=== PATIENT | male | born 1940 | race Caucasian/White ===

== ENCOUNTER 2017-10-09 13:52 | Inpatient (IN) | payer MEDICARE, MEDICAID ==
[~2017-10-09] VITALS: Ht 157.4 cm; Wt 72.8 kg
--- NOTE | ~2017-10-09 | PR ---
[place], [place] PROGRESS NOTE [id number] UNIT #: [id number] ROOM: 311 DOCTOR: JERONIMO OROZCO MD BIRTHDATE: [birth year] DOS: 10/15/2017 CHIEF COMPLAINT: "Look over there, go get me that, I have not had anything to eat." SUMMARY OF THE VISIT: The patient was interviewed as he was sitting in the dining area. He conversed readily, at times not making any sense at all. He reports that he did not have breakfast yet. Staff reports he ate a good breakfast. He continues to be labile. Staff reports that he episodically spits out his medication. He has taken enough of the Risperdal orally, though to be able to ascertain that he is tolerating it well. MENTAL STATUS: He is alert and oriented to self only. He remains grossly confused and disoriented. Mood remains labile. Affect at times is inappropriate. There is no kiya or hypomania. There are no auditory or visual hallucinations. He does process slowly and exhibits extremely poor short term memory. PLAN: I will renew his Ativan p.r.n. in case he requires intervention. I will start him on Risperdal Consta 12.5 mg IM every 14 days. If he tolerates this well, I will discontinue the oral eventually and leave him just on the Consta. This will at least then negate his spitting out of his medications. Engage in individual and zepeda milieu activity, returning then to the least restrictive environment when stable. JERONIMO OROZCO MD CM:PNTRANS [id number] JERONIMO OROZCO MD 10/15/17 1142 interface
--- NOTE | ~2017-10-09 | WRIGHTHP ---
[place], [place] PATIENT HISTORY AND PHYSICAL EXAM NAME: SHANDA CHEW UNIT #: [id number] ROOM: 311 DOCTOR: JERONIMO OROZCO MD BIRTHDATE: [birth year] DOS: 10/10/2017 CHIEF COMPLAINT: The patient was nonverbal. HISTORY OF PRESENT ILLNESS: This is a 77-year-old white male who is a resident of [facility]. He is admitted now to the [facility] due to an increase in agitation and aggression. The patient has been physically and verbally aggressive toward staff and other residents. He has been hitting, kicking, spitting and biting. He has also been biting himself. He has been undressing himself in front of other patients. He has been very inappropriate and attempts to redirect him have only led to him escalating further to the point where he is putting both himself and others at significant risk of harm. He is admitted now to rule out any organic factors to attempt to stabilize on medication, returning to the least restrictive environment when psychiatrically stable. PAST MEDICAL HISTORY: Remarkable for atrial fibrillation, gout, hyperlipidemia, hypertension, orthostatic hypotension and Alzheimer dementia. MENTAL STATUS: Upon admission, the patient was alert and oriented to self. As I called his name, he opened his eyes briefly, then closed them and then would not converse with me anymore. This seemed to be volitional on his part and he seemed to be deliberately ignoring me. I could not get any further information out of him whatsoever. DIAGNOSIS: Brief psychotic disorder, rule out major depression, recurrent, with psychotic features. PLAN: I have already started him on Depakote, which he has been episodically noncompliant with. I will go ahead and order Risperdal M-Tab because I do believe we can get this in him to be more compliant and if needed, I can utilize Risperdal Consta. I will support and monitor, engage in individual and zepeda milieu therapy, returning to the least restrictive environment when psychiatrically stable. [place], [place] PATIENT HISTORY AND PHYSICAL EXAM NAME: SHANDA CHEW UNIT #: [id number] ROOM: 311 DOCTOR: JERONIMO OROZCO MD BIRTHDATE: [birth year] JERONIMO OROZCO MD CM:TODDS:PATIENT HISTORY AND PHYSICAL EXAMINATION 8 07 JERONIMO OROZCO MD 10/10/17 1009 interface
[2017-10-09] MEDS ORDERED: ASPIRIN CHEWABL81 MG PO (13:58)
[2017-10-09] MEDS ORDERED: VITAMIN D31000 UNI1 PO (13:58)
[2017-10-09] MEDS ORDERED: RIVASTIGMINE TAR6 M1 PO (14:04)
[2017-10-09] MEDS ORDERED: NAMENDA10 MG PO (14:13)
[2017-10-09] MEDS ORDERED: COUMADIN4 M2 PO (14:14)
[2017-10-09] MEDS ORDERED: SEROQUEL XR1 EACH PO (14:15)
[2017-10-09] MEDS ORDERED: SEROQUEL XR50 MG PO (14:16)
[2017-10-09] MEDS ORDERED: ZOLOFT50 MG PO (14:17)
[2017-10-09] MEDS ORDERED: ALLOPURINOL100 MG PO (14:18)
[2017-10-09] MEDS ORDERED: MIDODRINE HCL5 M1 PO (14:19)
[2017-10-09] MEDS ORDERED: MOTRIN 400 MG E4 TAB PO (14:19)
[2017-10-09] MEDS ORDERED: ATIVAN1 MG PO (14:20)
[2017-10-09 15:18] VITALS: BP 153/74
[2017-10-09 15:55] VITALS: BP 153/74
[2017-10-09 20:02] VITALS: BP 140/75
[2017-10-10 04:54] LABS: BILIRUBIN NEGATIVE (NEGATIVE); BLOOD NEGATIVE (NEGATIVE); CLARITY CLEAR (CLEAR); COLOR YELLOW (YELLOW); GLUCOSE NEGATIVE (NEGATIVE); KETONE NEGATIVE (NEGATIVE); LEUKO ESTERASE NEGATIVE (NEGATIVE); NITRITE NEGATIVE (NEGATIVE); PH 7.5 (5.0-9.0); UROBILINOGEN 0.2 E.U./dl (0.2-1.0)
[2017-10-10 05:01] LABS: BACTERIA TRACE; EPITHELIAL CELLS 0-2; RBC 0-2 rbc/hpf (0-2); WBC 0-2 wbc/hpf (0-5)
[2017-10-10 08:04] VITALS: BP 132/64
[2017-10-10 09:00] LABS: BASO % 0.7 % (0.0-1.0); EOS # 0.3 10*3/uL (0.0-0.4); EOS % 5.7 % (1.0-4.0); HEMATOCRIT 39.9 % (42.0-52.0); HEMOGLOBIN 13.3 g/dl (14.0-18.0); LYMPH # 1.2 10*3/uL (1.3-4.4); LYMPH % 21.6 % (27.0-41.0); MEAN CELL VOLUME 96.4 fl (80.0-94.0); MEAN CORPUSCULAR HGB 32.1 pg (27.0-31.0); MEAN CORPUSCULAR HGB CONC 33.3 g/dl (33.0-37.0); MEAN PLATELET VOLUME 10.3 fl (9.6-12.3); MONO # 0.4 10*3/uL (0.1-1.0); MONO % 6.8 % (3.0-9.0); NEUT # 3.6 10*3/uL (2.3-7.9); PLATELET COUNT AUTOMATED 176 10*3/uL (130-400); RED BLOOD COUNT 4.14 10*6/uL (4.50-5.90); RED CELL DISTRI WIDTH 13.5 % (0-14.5); WHITE BLOOD COUNT 5.5 10*3/uL (4.8-10.8)
[2017-10-10 09:32] LABS: ALBUMIN 3.4 gm/dl (3.1-4.5); BUN 21 mg/dl (7-24); CHLORIDE 106 mmol/L (98-107); CREATININE 0.96 mg/dL (0.70-1.30); POTASSIUM 3.9 mmol/L (3.5-5.1); SGOT/AST 27 IU/L (3-35); SGPT/ALT 22 U/L (12-78); SODIUM 140 mmol/L (136-145); TOTAL PROTEIN 6.7 gm/dL (6.4-8.2); TRIGLYCERIDES 74 mg/dl (<150); VLDL CHOLESTEROL 15 mg/dL (6-40)
[2017-10-10 09:42] LABS: ALKALINE PHOSPHATASE 89 U/L (45-117); CHOLESTEROL 337 mg/dL (<200); HDL CHOLESTEROL 51 mg/dl (40-60); LDL CHOLESTEROL 271 mg/dL (9-159)
[2017-10-10 09:50] LABS: INTERNATIONAL NORM RATIO 2.5 (2.0-3.5)
[2017-10-10 12:03] VITALS: BP 103/69
[2017-10-10 20:00] VITALS: BP 136/76
[2017-10-11 08:10] VITALS: BP 132/75
[2017-10-11 08:11] LABS: INTERNATIONAL NORM RATIO 2.4 (2.0-3.5)
[2017-10-11 20:00] VITALS: BP 135/78
[2017-10-12 07:50] VITALS: BP 129/78
[2017-10-12 09:36] LABS: INTERNATIONAL NORM RATIO 2.9 (2.0-3.5)
[2017-10-12 20:00] VITALS: BP 131/67
[2017-10-13 06:24] LABS: INTERNATIONAL NORM RATIO 2.9 (2.0-3.5)
[2017-10-13 08:06] VITALS: BP 123/54
[2017-10-13 20:00] VITALS: BP 111/65
[2017-10-14 08:13] VITALS: BP 123/65
[2017-10-14 12:16] LABS: INTERNATIONAL NORM RATIO 2.1 (2.0-3.5)
[2017-10-14 20:00] VITALS: BP 131/72
[2017-10-15 06:25] LABS: INTERNATIONAL NORM RATIO 1.8 (2.0-3.5)
[2017-10-15 08:07] VITALS: BP 125/82
[2017-10-15] MEDS ORDERED: RISPERDAL M-TA0.5 MG PO (12:05)
[2017-10-15] MEDS ORDERED: NAMENDA10 MG PO (12:05)
[2017-10-15] MEDS ORDERED: RISPERDAL M-TAB1 MG PO (12:05)
[2017-10-15] MEDS ORDERED: NAMENDA-5 PO (16:04)
[2017-10-15] MEDS ORDERED: ATIVAN1 MG PO (16:09)
[2017-10-15] MEDS ORDERED: ATIVAN2 MG/1 ML IM (16:09)
[2017-10-15] MEDS ORDERED: SEROQUEL50 MG PO (16:10)
[2017-10-16] MEDS ORDERED: ATIVAN2 MG/1 ML IM (11:52)
[2017-10-16] MEDS ORDERED: GEODON20 M1 IM (11:52)
[2017-10-16] MEDS ORDERED: ATIVAN1 MG PO (11:52)
== END 2017-10-15 12:06 | disposition short-term general hospital (02) | DRG 885 ==
LOC: 3N 13:52
PROVIDERS: Emergency Medicine; Psychiatry & Neurology Psychiatry; Registered Nurse; Student in an Organized Health Care Education/Training Program
DX: F23 Brief psychotic disorder (principal); F02.81 Dementia in other diseases classified elsewhere, unspecified severity, with behavioral disturbance; I48.2 Chronic atrial fibrillation; G30.9 Alzheimer's disease, unspecified; E78.5 Hyperlipidemia, unspecified; M10.9 Gout, unspecified; I95.1 Orthostatic hypotension; E55.9 Vitamin D deficiency, unspecified; I10 Essential (primary) hypertension; Z91.14 Patient's other noncompliance with medication regimen; Z79.899 Other long term (current) drug therapy; Z79.82 Long term (current) use of aspirin; Z79.01 Long term (current) use of anticoagulants; Z79.1 Long term (current) use of non-steroidal anti-inflammatories (NSAID)

== ENCOUNTER 2017-10-15 12:37 | Inpatient (IN) | payer MEDICARE, MEDICAID ==
[~2017-10-15] VITALS: Ht 175.3 cm; Wt 68.5 kg
--- NOTE | ~2017-10-15 | EKG ---
[place], [place] ELECTROCARDIOGRAM REPORT NAME: SHANDA CHEW UNIT #: [id number] ROOM: 410 DOCTOR: SHARMILA TONG MD BIRTHDATE: [birth year] DOS: 10/15/2017 IMPRESSION: Atrial fibrillation with a controlled ventricular response, right ventricular conduction delay and nonspecific ST-T changes. Abnormal ECG. Sharmila Tong MD CM:EKGRPT:ELECTROCARDIOGRAM REPORT [id number] SHARMILA TONG MD
--- NOTE | ~2017-10-15 | EKG ---
[place], [place] ELECTROCARDIOGRAM REPORT NAME: SHANDA CHEW UNIT #: [id number] ROOM: 410 DOCTOR: SHARMILA TONG MD BIRTHDATE: [birth year] DOS: 10/16/2017 IMPRESSION: Atrial fibrillation with a controlled ventricular response, right ventricular conduction delay, nonspecific ST-T changes, abnormal ECG. No older ones to compare. Sharmila Tong MD CM:EKGRPT:ELECTROCARDIOGRAM REPORT [id number] SHARMILA TONG MD
[2017-10-15 12:30] VITALS: BP 161/68
[~2017-10-15 12:37] MED LIST: ALLOPURINOL100 MG PO; ASPIRIN CHEWABL81 MG PO; ATIVAN1 MG PO; COUMADIN4 M2 PO; MIDODRINE HCL5 M1 PO; MOTRIN 400 MG E4 TAB PO; NAMENDA10 MG PO; RISPERDAL M-TA0.5 MG PO; RISPERDAL M-TAB1 MG PO; RIVASTIGMINE TAR6 M1 PO; SEROQUEL XR1 EACH PO; SEROQUEL XR50 MG PO; VITAMIN D31000 UNI1 PO; ZOLOFT50 MG PO
[2017-10-15 14:41] LABS: ABG BASE EXCESS 0.6 mmol/L (-2.0-2.0); ABG HCO3 24.5 mmol/l (22-26); ABG O2 SATURATION 95.7 % (95-97); ARTERIAL BLOOD GAS PCO2 38.1 mmHg (35-45); ARTERIAL BLOOD GAS PH 7.422 (7.35-7.45); ARTERIAL BLOOD GAS PO2 74.2 mmHg (80-90)
[2017-10-15 16:00] VITALS: BP 133/91
[2017-10-15] MEDS ORDERED: NAMENDA-5 PO (16:04)
[2017-10-15] MEDS ORDERED: ATIVAN2 MG/1 ML IM (16:09)
[2017-10-15] MEDS ORDERED: ATIVAN1 MG PO (16:09)
[2017-10-15] MEDS ORDERED: SEROQUEL50 MG PO (16:10)
[2017-10-15 20:29] VITALS: BP 141/90
[2017-10-16] VITALS: BP 116/71
[2017-10-16 06:34] LABS: BASO % 0.5 % (0.0-1.0); EOS # 0.2 10*3/uL (0.0-0.4); EOS % 2.7 % (1.0-4.0); HEMOGLOBIN 14.9 g/dl (14.0-18.0); LYMPH # 1.2 10*3/uL (1.3-4.4); LYMPH % 19.3 % (27.0-41.0); MEAN CELL VOLUME 95.6 fl (80.0-94.0); MEAN CORPUSCULAR HGB 33.1 pg (27.0-31.0); MEAN CORPUSCULAR HGB CONC 34.7 g/dl (33.0-37.0); MEAN PLATELET VOLUME 10.5 fl (9.6-12.3); MONO # 0.5 10*3/uL (0.1-1.0); MONO % 7.6 % (3.0-9.0); NEUT # 4.4 10*3/uL (2.3-7.9); NEUT % 69.7 % (47.0-73.0); PLATELET COUNT AUTOMATED 177 10*3/uL (130-400); RED CELL DISTRI WIDTH 13.1 % (0-14.5); WHITE BLOOD COUNT 6.3 10*3/uL (4.8-10.8)
[2017-10-16 06:58] LABS: ALBUMIN 3.4 gm/dl (3.1-4.5); ALKALINE PHOSPHATASE 98 U/L (45-117); BUN 21 mg/dl (7-24); CHLORIDE 103 mmol/L (98-107); CHOLESTEROL 348 mg/dL (<200); CREATININE 0.88 mg/dL (0.70-1.30); FREE T4 0.99 ng/dl (0.76-1.46); HDL CHOLESTEROL 52 mg/dl (40-60); LDL CHOLESTEROL 283 mg/dL (9-159); PHOSPHOROUS 2.3 mg/dL (2.5-4.9); SGOT/AST 17 IU/L (3-35); SGPT/ALT 18 U/L (12-78); SODIUM 141 mmol/L (136-145); TOTAL PROTEIN 7.1 gm/dL (6.4-8.2); TRIGLYCERIDES 65 mg/dl (<150); VLDL CHOLESTEROL 13 mg/dL (6-40)
[2017-10-16 08:00] VITALS: BP 124/60
[2017-10-16 08:40] LABS: VITAMIN D, 25-HYDROXY 23.6 ng/mL (30-100)
[2017-10-16] MEDS ORDERED: GEODON20 M1 IM (11:52)
[2017-10-16] MEDS ORDERED: ATIVAN2 MG/1 ML IM (11:52)
[2017-10-16] MEDS ORDERED: ATIVAN1 MG PO (11:52)
[2017-10-16 12:00] VITALS: BP 165/99
[2017-10-16 16:00] VITALS: BP 133/90
[2017-10-16 20:00] VITALS: BP 130/76
[2017-10-17] VITALS: BP 132/77
[2017-10-17 08:00] VITALS: BP 142/72
[2017-10-17 09:53] LABS: INTERNATIONAL NORM RATIO 2.3 (2.0-3.5)
[2017-10-17 12:00] VITALS: BP 136/96
[2017-10-17 13:19] VITALS: BP 130/80
[2017-10-17 16:00] VITALS: BP 127/61
== END 2017-10-17 16:15 | disposition home or self-care (01) | DRG 71 ==
LOC: 4E 12:37
PROVIDERS: Internal Medicine; Registered Nurse
DX: G93.41 Metabolic encephalopathy (principal); I48.1 Persistent atrial fibrillation; G30.9 Alzheimer's disease, unspecified; F02.81 Dementia in other diseases classified elsewhere, unspecified severity, with behavioral disturbance; F23 Brief psychotic disorder; M10.9 Gout, unspecified; E55.9 Vitamin D deficiency, unspecified; E78.2 Mixed hyperlipidemia; Z66 Do not resuscitate; Z51.5 Encounter for palliative care; R74.8 Abnormal levels of other serum enzymes; I10 Essential (primary) hypertension; Z79.82 Long term (current) use of aspirin; Z79.01 Long term (current) use of anticoagulants; Z81.8 Family history of other mental and behavioral disorders; Z79.899 Other long term (current) drug therapy